=== PATIENT | female | born 1990 | race Native Hawaiian/Other Pacific Islander ===

== ENCOUNTER 2017-08-24 12:54 | Inpatient (IN) | payer MEDICAID, OTHER ==
[2017-04-20 11:36] VITALS: BMI 23.6
[2017-08-24] MEDS ORDERED: cefOXitin IV 2 gm in Saline 2 GM/50 ML BAG IVPB ONE ×2 (13:29→14:14)
[2017-08-24] MEDS ORDERED: Sodium Citrate/Citric Acid 15 ml Sol PO ONE (13:29)
[2017-08-24] MEDS ORDERED: Lactated Ringer's 1,000 ML IV SCH (13:30)
[2017-08-24 14:02] LABS: BASO % 0.1 % (0.0-2.0); EOS # 0.2 K/uL (0.0-0.7); EOS % 1.6 % (0.0-4.0); HEMOGLOBIN 12.2 g/dL (11.0-16.0); LYMPH # 2.6 K/uL (1.0-4.3); LYMPH % 19.1 % (20.0-40.0); MEAN CELL VOLUME 84.6 fL (81.0-99.0); MEAN CORPUSCULAR HEMOGLOBIN 28.5 pg (27.0-31.0); MEAN CORPUSCULAR HGB CONC 33.7 g/dL (33.0-37.0); MEAN PLATELET VOLUME 9.1 fL (7.2-11.7); MONO # 1.1 K/uL (0.0-0.8); NEUT # 9.9 K/uL (1.8-7.0); NEUT % 71.2 % (50.0-75.0); RBC 4.29 Mil/uL (3.80-5.20); WHITE BLOOD COUNT 13.9 K/uL (4.8-10.8)
[2017-08-24 14:03] LABS: SQUAMOUS EPITHIAL 18 /hpf (0-5); URINE BACTERIA RARE (<OCC); URINE BILIRUBIN NEGATIVE (NEGATIVE); URINE BLOOD 1+ (NEGATIVE); URINE CLARITY Hazy (Clear); URINE COLOR Yellow (YELLOW); URINE GLUCOSE (UA) NORMAL (Normal); URINE LEUKOCYTE ESTERASE 2+ Leu/uL (Negative); URINE PROTEIN NEGATIVE (NEGATIVE); URINE UROBILINOGEN NORMAL mg/dL (0.2-1.0)
[2017-08-24] MEDS ORDERED: Sodium Citrate/Citric Acid 15 ml Sol ONE (14:13)
[2017-08-24] MEDS ORDERED: Oxytocin 20 units in LR 2,000 ML IV ONE (14:14)
[2017-08-24] MEDS ORDERED: Oxytocin 10 Units/ml Inj ONE (14:15)
[2017-08-24 14:18] LABS: ALB/GLOB RATIO 1.1 (1.0-2.1); ALT/SGPT 7 U/L (9-52); AST/SGOT 26 U/L (14-36); BLOOD UREA NITROGEN 4 mg/dL (7-17); CALCIUM 9.4 mg/dl (8.6-10.4); GFR AFRICAN-AMERICAN > 60; GFR NON-AFRICAN AMERICAN > 60
[2017-08-24] MEDS ORDERED: ePHEDrine 50 mg/ml Inj ONE ×2 (16:14→17:22)
[2017-08-24] MEDS ORDERED: Phenylephrine 10 mg/ml Inj ONE ×2 (16:14→17:22)
[2017-08-24] MEDS ORDERED: Morphine 1 mg/ml preservative-free Inj(Duramorph) ONE (16:14)
--- NOTE | 2017-08-24 16:35 | OBHP ---
Datetime: 08/24/2017 13:39 IP Adm Impression: Term, intrauterine IP Chief Complaint Other: Polyhydramnios IP Admit Plan: Admit to unit; Initiate Section protocol Admit Comment, IP Provider: Patient is a 27 year old at 38w4d RICARDO 09/03/17 by LMP (11/27/16) was sent to L+D from US for C section. MFM recommending delivery today due to polyhydramnios on US perfo rmed this morning. KOBY noted to be 27. Patient is doing well, offers no complaints at this time. Endo rses +FM, denies CTX, VB, LOF. Issues: Varicella positive in - Patient declined amnio and TOP Vitamin B12/Vitamin D deficiency OB Hx: 1. 2014 PLTCD 2/2 meconium, performed in [place], Female infant, 3.6kg, no complications 2. SAB at 12 weeks 3. 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 Hx: LMP 11/27/16 [facility] 14 x regular x 5-6 days Denies history of fibroids, ovarian cysts, STIs Never had a pap smear Allergies: NKDA Medications: PNV, Vitamin D 1000 units daily, Iron, Vitamin B12 inj Medical History: Denies Surgical History: C/S x 1 Social History: Denies alcohol, tobacco, drug use; lives with PE: see above A/P: 27 year old at 38w4d, previous C/S x 1 presents with polydramnios, MFM recommending d elivery -Will admit to unit -CEFM and TOCO -Admission Labs: CBC, CMP, T+S, UA -LR @ 125cc/hr -Diet: NPO -Cefoxitin 2gm, Bictra, Pepcid preoperatively -Anesthesia notified -Patient desires Tubal ligation, consent was signed 08/10/17, patient informed that tubal cannot be performed because it has been less than 30 days since form was signed -Plan discussed with Dr Franklyn Kimbrough DO PGY-1 FHR - Baseline A Provider: 140 Contraction Comments Provider: q2-4 min Comments, ACOG Physical Exam: VS: 108/64 116 98.3 Gen: AAOx3 CV: RRR Lungs: CTA B/L Abd: Soft, gravid Ext: No clubbing, cyanosis, edema IP Hx Assessment: The History has been Reviewed and is Current EGA AdmitDate IP: 38.4 Vital Signs Provider: Reviewed; Within Normal Limits IP Chief Complaint: Other NICHD Variability Prov Fetus A: Moderate 6-25bpm NICHD Accel Fetus A IP Provider: [id number] FHR Category Provider Fetus A: Category I NICHD Decel Fetus A IP Provider: None
[2017-08-24] MEDS ORDERED: Esmolol 100 mg/10ml Inj IV ONE (17:22)
[2017-08-24] MEDS ORDERED: Oxycodone/Acetaminophen 5/325 mg Tab PO PRN (17:23)
[2017-08-24] MEDS ORDERED: Morphine 4 MG/ML VIAL IVP PRN (17:44)
--- NOTE | 2017-08-24 20:31 | PCM.SURG1 ---
Surgeon's Initial Post Op Note - Surgeon's Notes Surgeon: dr markham [place]ers[place] Helper: none Type of Anesthesia: Spinal Anesthesia Administered By: dr lucia Pre-Operative Diagnosis: 27yr at 38+weeks polyhydraminos/previous c/s Operative Findings: see the op reort Post-Operative Diagnosis: same Operation Performed: repeat section Specimen/Specimens Removed: cord gas. cord blod. placente Estimated Blood Loss: EBL {In ML}: 700 Blood Products Given: N/A Drains Used: No Drains Post-Op Condition: Good Date of Surgery/Procedure: 08/24/17 Time of Surgery/Procedure: 18:00
[2017-08-24] MEDS: Simethicone 80 mg Chewtab PO SCH (22:25)
--- NOTE | 2017-08-25 06:11 | OP ---
PROCEDURE DATE: 08/24/2017 PREOPERATIVE DIAGNOSIS: A 27-year-old 2, para 1 at 38 weeks and 4 days with polyhydramnios recommended delivery. POSTOPERATIVE DIAGNOSIS: A 27-year-old 2, para 1 at 38 weeks and 4 days with polyhydramnios recommended delivery. SURGEON: Azam Estes MD STAGE RIGGER: Dr. Lock who was present throughout the procedure with retraction, exposing, and pushing at the time of the delivery. ANESTHESIA: Spinal anesthesia. ANESTHESIOLOGIST: Radha Bolaños MD COMPLICATION: None. PROCEDURE PERFORMED: Repeat section. DESCRIPTION OF PROCEDURE: After informed consent was obtained, the patient was brought to the operating room, placed on the table where spinal anesthesia was given. When anesthesia was found to be sufficient, she was prepped and draped in normal sterile fashion. At the site of the previous skin incision, an incision was made with a knife, the subcutaneous cut with a Bovie. The fascia was excised on both the sides using curved Dominguez scissors. The fascia was from the site of the umbilicus and then at the site of the belly button rectus muscle. . The peritoneum was incised, and we went into the abdominal cavity. A bladder blade was placed, and bladder flap was created. Lower uterine segment incision was made with a knife. It was extended on both sides using curved Dominguez scissors. Baby delivered in [place] position. There was a cord around the body and the neck that was reduced. Baby was delivered in [place] position. Cord was clamped and cut. Cord gas was sent. Placenta delivered manually and sent to the Pathology. Uterus was exteriorized and cleared of all clots and debris. Uterine incision was closed using a #1 Vicryl in running interlocking fashion. Second layer was closed with the same stitch which was done. Cul-de-sac was cleared of all the clots and debris. Uterus was returned back to the abdominal cavity. The uterine incision looked hemostatic. Uterus, tubes, and ovaries looked normal after that. The peritoneum was closed with 2-0 Vicryl in interlocking fashion. Muscles were closed with 2-0 Vicryl in an interlocking fashion. The fascia was closed with #1 Vicryl in a running interlocking fashion. The skin was closed using 3-0 Monocryl straight needle. The patient tolerated the procedure well. Lap, sponge, and instrument counts were correct x2. Azam Estes MD
[2017-08-25 07:23] LABS: BASO % 0.1 % (0.0-2.0); EOS # 0.1 K/uL (0.0-0.7); EOS % 0.6 % (0.0-4.0); HEMOGLOBIN 11.7 g/dL (11.0-16.0); LYMPH # 1.5 K/uL (1.0-4.3); LYMPH % 10.5 % (20.0-40.0); MEAN CELL VOLUME 84.6 fL (81.0-99.0); MEAN CORPUSCULAR HEMOGLOBIN 29.1 pg (27.0-31.0); MEAN CORPUSCULAR HGB CONC 34.4 g/dL (33.0-37.0); MEAN PLATELET VOLUME 8.8 fL (7.2-11.7); MONO # 1.5 K/uL (0.0-0.8); MONO % 10.3 % (0.0-10.0); NEUT # 11.3 K/uL (1.8-7.0); NEUT % 78.5 % (50.0-75.0); RBC 4.03 Mil/uL (3.80-5.20); RED CELL DISTRIBUTION WIDTH 14.1 % (11.5-14.5); WHITE BLOOD COUNT 14.4 K/uL (4.8-10.8)
[2017-08-25] MEDS: Simethicone 80 mg Chewtab PO SCH ×4 (10:21→22:27)
[2017-08-25] MEDS: Oxycodone/Acetaminophen 5/325 mg Tab PO PRN ×2 (10:21→15:00)
[2017-08-25] MEDS: Prenatal Multivit/Folic Acid/Iron Tab PO SCH (10:21)
--- NOTE | 2017-08-25 15:41 | OBPPN ---
Datetime: 08/25/2017 09:25 PP Pain Prov: Within normal limits PP Nausea Prov: Denies PP Flatus Prov: No PP BM Prov: No PP Heart Prov: Normal PP Lungs Prov: Normal PP Abdomen/Uterus Prov: Normal PP Lochia Prov: Normal PP Extremities Prov: Normal PP C/S Incision Prov: Normal PP Progress Prov: Normal PP Impression Prov: Normal progression PP Plan Prov: Continue present management PP Progress Note Prov: 27 year old female who is POD#1 at today's visit. The patient states she has some abdominal pain located at the incision site, pain scale 6/10 - alleviated by pain medica tions. Patient states she is ambulating walking to the chair and restroom. The patient also reports breasfeeding her baby. The patient only reports tolerating ice chips during this visit. The patien t denies any bowel movement or flatus. The patient denies any chest pain, shortness of breath, fever s, chills, nausea, vomiting, changes in vision, or any other complaints. Vitals: Review in vitals chart above. Within normal limits. Labs: CBC 14.4>11.7/34.1<192 Physical Exam: Gen: Normocephalic, atraumatic, resting comfortably. HEENT: EOMI, ZOË Pulmonary: Clear to ausculation bilaterally, No rhonchi or wheezing appreciated Cardio: S1,S2 no murmurs appreciated Abdomen: Tender to touch upon palpation. Incision site healing well with no signs of erythema or d ischarge. Lower extremities: No signs of pittiing edema A/P: 27 year old female who is POD#1 for a repeat . -Encourage ambulation. -Encouraged breast feeding the baby -Encouraged using the incentive spirometer daily. -Continue pain mangement. -Continue Colace. -Clear liquid diet. Will advance as tolerated Plan discussed with Attending Dr. Pee Romo, Manager Digital [employer] Operations PGY-1 Attending Note: patient was seen and evaluated by me with the Resident. I agree with the above as documented.
[2017-08-25 16:29] VITALS: RESP 20
[2017-08-26 07:58] LABS: BASO % 0.1 % (0.0-2.0); EOS # 0.2 K/uL (0.0-0.7); EOS % 1.5 % (0.0-4.0); HEMOGLOBIN 11.2 g/dL (11.0-16.0); LYMPH # 1.3 K/uL (1.0-4.3); LYMPH % 9.1 % (20.0-40.0); MEAN CELL VOLUME 85.3 fL (81.0-99.0); MEAN CORPUSCULAR HEMOGLOBIN 28.9 pg (27.0-31.0); MEAN CORPUSCULAR HGB CONC 33.9 g/dL (33.0-37.0); MEAN PLATELET VOLUME 8.5 fL (7.2-11.7); MONO # 1.3 K/uL (0.0-0.8); MONO % 9.4 % (0.0-10.0); NEUT # 11.1 K/uL (1.8-7.0); NEUT % 79.9 % (50.0-75.0); PLATELET COUNT 211 K/uL (130-400); RBC 3.88 Mil/uL (3.80-5.20); WHITE BLOOD COUNT 13.9 K/uL (4.8-10.8)
[2017-08-26] MEDS ORDERED: Magnesium Hydroxide Susp 30 ml UD PO ONE (08:06)
[2017-08-26 08:52] LABS: ANISOCYTOSIS SLIGHT; HYPOCHROMIC SLIGHT; LYMPHOCYTE 9 % (20-40); MONOCYTE 10 % (0-10); NEUTROPHIL 81 % (50-75); PLATELET ESTIMATE NORMAL (NORMAL); POIKILOCYTOSIS SLIGHT; TOTAL CELLS COUNTED 100
[2017-08-26 08:53] LABS: TARGET CELLS SLIGHT
[2017-08-26] MEDS: Simethicone 80 mg Chewtab PO SCH ×4 (10:24→21:42)
[2017-08-26] MEDS: Oxycodone/Acetaminophen 5/325 mg Tab PO PRN ×3 (10:24→21:19)
[2017-08-26] MEDS: Prenatal Multivit/Folic Acid/Iron Tab PO SCH (10:24)
[2017-08-26 11:59] LABS: ALB/GLOB RATIO 0.9 (1.0-2.1); ALT/SGPT 14 U/L (9-52); AST/SGOT 37 U/L (14-36); BLOOD UREA NITROGEN 6 mg/dL (7-17); CALCIUM 9.2 mg/dl (8.6-10.4); GFR AFRICAN-AMERICAN > 60; GFR NON-AFRICAN AMERICAN > 60
--- NOTE | 2017-08-26 13:25 | OBPPN ---
Datetime: 08/26/2017 13:22 PP Pain Prov: Within normal limits PP Nausea Prov: Denies PP Flatus Prov: Yes PP BM Prov: No PP Breasts Prov: Normal PP Heart Prov: Normal PP Lungs Prov: Normal PP Abdomen/Uterus Prov: Normal PP Lochia Prov: Normal PP Vulva/Perineum Prov: Normal PP CVA Tenderness Prov: Normal PP Extremities Prov: Normal PP C/S Incision Prov: Normal PP Progress Prov: Normal PP Impression Prov: Normal progression PP Plan Prov: Continue present management PP Progress Note Prov: pt seen and examiend adn rperots pain controlle with medicatin. tp preorts on ly passign a little gas. pt dnies any fever, hcills, nause, vomitng, cp, sob, bowel or baldder compla itn. pt dnie any sdnses or dpresiosn. pt is breast feeding VSS PE see aobve a/p s/p rltcs pOD #2 pain mangmnet am labs encourage mabiton, bresat feeding bowel regimen Vital Signs Provider PP: Reviewed; Within Normal Limits
[2017-08-27] MEDS: Oxycodone/Acetaminophen 5/325 mg Tab PO PRN ×2 (06:05→12:17)
--- NOTE | 2017-08-27 07:45 | OBDCSUM ---
Datetime: 08/27/2017 07:43 Discharged to, Provider: Home Follow up at, Provider: 1-2 Disch Instr Activity: Bedrest Discharge Diagnosis, Provider: Term Delivered Follow up in weeks, Provider: clinic Disch Activity Restrictions: No exercising; No lifting; No driving; Minimize walking; Minimize stair -climbing; No sexual activity; Nothing in vagina - [place], tampons, douche Discharge Comment, Provider: dc home no sex percocet prn encoourage ambulation f/u in clinic in 1-2week Discharge Diagnosis Prov Other: s/p c/s
--- NOTE | 2017-08-27 07:45 | OBPPN ---
Datetime: 08/27/2017 07:40 PP Pain Prov: Within normal limits PP Nausea Prov: Denies PP Flatus Prov: Yes PP BM Prov: Yes PP Abdomen/Uterus Prov: Normal PP Lochia Prov: Normal PP C/S Incision Prov: Normal PP Comments Phys Exam Prov: fudus below umblicus ext no edema, no calf ten incision clean AND DRY PP Impression Prov: Normal progression PP Plan Prov: Discharge PP Progress Note Prov: PT WAS SEEN AT BED SIde, pain under control,no n/v, tolerating deit, voiding , min lochia, flatus+ pod#3 s/p c/s dc home no sex percocet prn encoourage ambulation f/u in clinic in 1-2week Vital Signs Provider PP: Reviewed; Within Normal Limits
--- NOTE | 2017-08-27 07:55 | CP.PCM.DIS ---
Provider - Provider Date of Admission: 08/24/17 13:11 Attending physician: Azam Estes MD Time Spent in preparation of Discharge (in minutes): 20 Diagnosis - Discharge Diagnosis (1) 38 weeks gestation of Status: Acute (2) Previous section complicating Status: Acute (3) S/P repeat low transverse Status: Acute Hospital Course - Lab Results Lab Results: Most Recent Lab Values WBC 13.9 K/uL (4.8-10.8) H 08/26/17 07:38 RBC 3.88 Mil/uL (3.80-5.20) 08/26/17 07:38 Hgb 11.2 g/dL (11.0-16.0) 08/26/17 07:38 Hct 33.1 % (34.0-47.0) L 08/26/17 07:38 MCV 85.3 fL (81.0-99.0) 08/26/17 07:38 MCH 28.9 pg (27.0-31.0) 08/26/17 07:38 MCHC 33.9 g/dL (33.0-37.0) 08/26/17 07:38 RDW 14.0 % (11.5-14.5) 08/26/17 07:38 Plt Count 211 K/uL (130-400) 08/26/17 07:38 MPV 8.5 fL (7.2-11.7) 08/26/17 07:38 Neut % (Auto) 79.9 % (50.0-75.0) H 08/26/17 07:38 Lymph % (Auto) 9.1 % (20.0-40.0) L 08/26/17 07:38 [place] % (Auto) 9.4 % (0.0-10.0) 08/26/17 07:38 Eos % (Auto) 1.5 % (0.0-4.0) 08/26/17 07:38 Baso % (Auto) 0.1 % (0.0-2.0) 08/26/17 07:38 Neut # (Auto) 11.1 K/uL (1.8-7.0) H 08/26/17 07:38 Lymph # (Auto) 1.3 K/uL (1.0-4.3) 08/26/17 07:38 [place] # (Auto) 1.3 K/uL (0.0-0.8) H 08/26/17 07:38 Eos # (Auto) 0.2 K/uL (0.0-0.7) 08/26/17 07:38 Baso # (Auto) 0.0 K/uL (0.0-0.2) 08/26/17 07:38 Neutrophils % (Manual) 81 % (50-75) H 08/26/17 07:38 Lymphocytes % (Manual) 9 % (20-40) L 08/26/17 07:38 Monocytes % (Manual) 10 % (0-10) 08/26/17 07:38 Platelet Estimate Normal (NORMAL) 08/26/17 07:38 Hypochromasia (manual) Slight 08/26/17 07:38 Poikilocytosis (manual Slight 08/26/17 07:38 Anisocytosis (manual) Slight 08/26/17 07:38 Target Cells Slight 08/26/17 07:38 Sodium 139 mmol/L (132-148) 08/26/17 11:26 Potassium 4.2 mmol/L (3.6-5.2) 08/26/17 11:26 Chloride 106 mmol/L (98-107) 08/26/17 11:26 Carbon Dioxide 26 mmol/L (22-30) 08/26/17 11:26 Anion Gap 12 (10-20) 08/26/17 11:26 BUN 6 mg/dL (7-17) L 08/26/17 11:26 Creatinine 0.6 mg/dL (0.7-1.2) L 08/26/17 11:26 Est GFR ( Amer) > 60 08/26/17 11:26 Est GFR (Non-Af Amer) > 60 08/26/17 11:26 Random Glucose 123 mg/dL (65-105) H 08/26/17 11:26 Calcium 9.2 mg/dl (8.6-10.4) 08/26/17 11:26 Total Bilirubin 0.2 mg/dL (0.2-1.3) 08/26/17 11:26 AST 37 U/L (14-36) H D 08/26/17 11:26 ALT 14 U/L (9-52) 08/26/17 11:26 Alkaline Phosphatase 112 U/L (38-126) 08/26/17 11:26 Total Protein 6.2 g/dL (6.3-8.3) L 08/26/17 11:26 Albumin 3.0 g/dL (3.5-5.0) L D 08/26/17 11:26 Globulin 3.2 gm/dL (2.2-3.9) 08/26/17 11:26 Albumin/Globulin Ratio 0.9 (1.0-2.1) L 08/26/17 11:26 Urine Color Yellow (YELLOW) 08/24/17 13:44 Urine Clarity Hazy (Clear) 08/24/17 13:44 Urine pH 6.0 (5.0-8.0) 08/24/17 13:44 Ur Specific [place] 1.008 (1.003-1.030) 08/24/17 13:44 Urine Protein Negative mg/dL (NEGATIVE) 08/24/17 13:44 Urine Glucose (UA) Normal mg/dL (Normal) 08/24/17 13:44 Urine Ketones Negative mg/dL (NEGATIVE) 08/24/17 13:44 Urine Blood 1+ (NEGATIVE) H 08/24/17 13:44 Urine Nitrate Negative (NEGATIVE) 08/24/17 13:44 Urine Bilirubin Negative (NEGATIVE) 08/24/17 13:44 Urine Urobilinogen Normal mg/dL (0.2-1.0) 08/24/17 13:44 Ur Leukocyte Esterase 2+ Anne/uL (Negative) H 08/24/17 13:44 Urine WBC (Auto) 5 /hpf (0-5) 08/24/17 13:44 Urine RBC (Auto) 9 /hpf (0-3) H 08/24/17 13:44 Ur Squamous Epith Cells 18 /hpf (0-5) H 08/24/17 13:44 Urine Bacteria Rare (<OCC) 08/24/17 13:44 RPR Nonreactive (NONREACTIVE) 08/24/17 13:44 Blood Type B POSITIVE 08/24/17 13:44 Antibody Screen Negative 08/24/17 13:44 Discharge Plan - Follow Up Plan Condition: GOOD Disposition: HOME/ ROUTINE
[2017-08-27] MEDS: Prenatal Multivit/Folic Acid/Iron Tab PO SCH (10:05)
[2017-08-27] MEDS: Simethicone 80 mg Chewtab PO SCH ×3 (10:05→17:47)
[2017-08-27 16:11] VITALS: BP 102/67; PULSE 82; TEMP 97.2; O2SAT 100
== END 2017-08-27 19:30 | disposition home or self-care (01) | DRG 766 ==
LOC: C.EROB 12:54 → C.4D 13:11 → C.4M 08-25 05:50
PROVIDERS: ADMIT Obstetrics & Gynecology; ATTEND Obstetrics & Gynecology
PROC: 10D00Z1 Extraction of Products of Conception, Low, Open Approach (ICD-10-PCS; principal; 2017-08-24)
DX: O40.3XX0 Polyhydramnios, third trimester, not applicable or unspecified (principal); O34.211 Maternal care for low transverse scar from previous cesarean delivery; Z3A.38 38 weeks gestation of pregnancy; Z37.0 Single live birth